=== PATIENT | female | born 1985 ===

== ENCOUNTER 2018-01-09 10:39 | Emergency (ER) | payer MEDICAID, OTHER ==
[2018-01-09 10:39] VITALS: BMI 39.8
[2018-01-09 10:48] VITALS: TEMP 98.5
--- NOTE | 2018-01-09 11:12 | ED PDOC ---
HPI: Chest Pain Time Seen by Provider: 01/09/18 11:03 Chief Complaint (Nursing): Chest Pain History Per: Patient Onset/Duration Of Symptoms: Days (1) Current Symptoms Are (Timing): Still Present Severity: Mild Pain Scale Rating Of: 3 Quality: Sharp Exacerbating Factors: Deep Breathing Additional Complaint(s): Sharp left sided chest pain since this AM. Worse on inspiration. Denies SOB cough or fever. Past Medical History Vital Signs: Last Vital Signs Temp 98.5 F 01/09/18 10:48 Pulse 72 01/09/18 10:58 Resp 16 01/09/18 10:58 BP 112/67 01/09/18 10:48 Pulse Ox 100 01/09/18 11:12 - Medical History PMH: Anxiety, Gastritis Denies: Chronic Kidney Disease - Family History Family History: States: Unknown Family Hx - Immunization History Hx Tetanus Toxoid Vaccination: No Hx Influenza Vaccination: No Hx Pneumococcal Vaccination: No - Home Medications Home Medications: Ambulatory Orders Medication Instructions Recorded Ibuprofen [Motrin Tab] 600 mg PO Q6 #14 tab 12/20/16 Methocarbamol [Robaxin] 500 mg PO TID #14 tab 12/20/16 Omeprazole 10 mg PO DAILY 12/20/16 traMADol [Ultram] 50 mg PO TID #7 tab 12/20/16 Phenobarb/Hyoscy/Atropine/Scop 16.2 mg PO Q6 #10 tablet 08/20/17 [ Tablet] Naproxen [Naprosyn] 500 mg PO Q12H #20 tab 01/09/18 - Allergies Allergies/Adverse Reactions: Allergies Allergy/AdvReac Type Severity Reaction Status Date / Time morphine Allergy Verified 08/19/17 23:52 Review of Systems Cardiovascular: Positive for: Chest Pain Physical Exam - Reviewed Nursing Documentation Reviewed: Yes Vital Signs Reviewed: Yes - Physical Exam Appears: Positive for: Non-toxic, No Acute Distress Head Exam: Positive for: ATRAUMATIC, NORMAL INSPECTION, NORMOCEPHALIC Skin: Positive for: Normal Color, Warm, DRY Eye Exam: Positive for: EOMI, Normal appearance, PERRL ENT: Positive for: Normal ENT Inspection Neck: Positive for: Normal, Painless ROM Cardiovascular/Chest: Positive for: Regular Rate, Rhythm. Negative for: Chest Non Tender (Ant chest wall tenderness) Respiratory: Positive for: CNT, Normal Breath Sounds Gastrointestinal/Abdominal: Positive for: Normal Exam, Soft Back: Positive for: Normal Inspection Extremity: Positive for: Normal ROM Neurologic/Psych: Positive for: Alert, Oriented - ECG O2 Sat by Pulse Oximetry: 100 Disposition - Clinical Impression Clinical Impression: Chest wall pain - Patient ED Disposition Is Patient to be Admitted: No Counseled Patient/Family Regarding: Studies Performed, Diagnosis, Need For Followup, Rx Given - Disposition Referrals: [facility] [Outside] Disposition: Routine/Home Disposition Time: 11:58 Condition: FAIR Prescriptions: Naproxen [Naprosyn] 500 mg PO Q12H #20 tab Instructions: Costochondritis Forms: [facility] ([facility])
--- NOTE | 2018-01-09 12:02 | RAD ---
Date of service: 01/09/2018 HISTORY: Chest pain COMPARISON: No prior. TECHNIQUE: Chest PA and lateral FINDINGS: LUNGS: No active pulmonary disease. PLEURA: No significant pleural effusion identified. No pneumothorax apparent. CARDIOVASCULAR: Normal. OSSEOUS STRUCTURES: No significant abnormalities. VISUALIZED UPPER ABDOMEN: Normal. OTHER FINDINGS: None. IMPRESSION: No active disease.
[2018-01-09 12:45] VITALS: BP 135/69; PULSE 77; RESP 18; O2SAT 98
--- NOTE | 2018-01-10 15:12 | CARD ---
APPROVED REPORT Date of service: 01/09/2018 EKG Measurement Heart [id number] <Conclusion> Normal sinus rhythm Normal ECG
== END 2018-01-09 12:06 | disposition home or self-care (01) ==
LOC: H.ER 10:39
DX: R07.89 Other chest pain (principal); F41.9 Anxiety disorder, unspecified